=== PATIENT | female | born 1990 | race Two or more races ===

== ENCOUNTER 2019-03-12 15:58 | Inpatient (IN) | payer SELFPAY ==
[~2019-03-12] VITALS: Ht 162.6 cm; Wt 68.5 kg
[2019-03-12] MEDS ORDERED: TERBUTALINE 1 MG/ML VIAL. SQ PRN (16:45)
[2019-03-12] MEDS ORDERED: ONDANSETRON PF 4 MG/2 ML VIAL. IV PRN (16:45)
[2019-03-12] MEDS ORDERED: fentaNYL PF VIAL 100 MCG/2 ML VIAL IV PRN (16:45)
[2019-03-12] MEDS ORDERED: IBUPROFEN 400 MG TABLET. PO PRN (16:45)
[2019-03-12] MEDS ORDERED: OXYTOCIN 30 UNIT/500 ML PREMIX 500 ML IV PRN ×2 (16:45)
[2019-03-12] MEDS ORDERED: NALBUPHINE 10 MG/ML AMPUL. IV PRN ×2 (16:45)
[2019-03-12] MEDS ORDERED: 0.9 % SODIUM CHLORIDE 10 ML DISP.SYRIN. IV PRN (16:45)
[2019-03-12] MEDS ORDERED: BUTORPHANOL 2 MG/ML VIAL. IV PRN ×2 (16:45)
[2019-03-12] MEDS ORDERED: LIDOCAINE 1% PF 30 ML VIAL. INJ PRN (16:45)
[2019-03-12] MEDS ORDERED: PENICILLIN G K 5,000,000 UNIT in IV DEXTROSE 5% 100ML 100 ML IV ONE (17:00)
[2019-03-12 17:06] LABS: BASO % 1 % (0-3); EOS % 1 % (0-3); HEMOGLOBIN 12.3 g/dL (12.0-15.5); LYMPH # 1.5 x10^3/uL (1.0-4.8); LYMPH % 26 % (24-48); MEAN CORPUSCULAR HEMOGLOBIN 30 pg (25-35); MEAN CORPUSCULAR HGB CONC 34 g/dL (31-37); MEAN CORPUSCULAR VOLUME 87 fL (79-100); MONO # 0.4 x10^3/uL (0.0-1.1); MONO % 8 % (0-9); NEUT # 3.8 x10^3/uL (1.8-7.7); NEUT % 65 % (31-73); PLATELET COUNT 328 x10^3/uL (140-400); RED BLOOD COUNT 4.12 x10^6/uL (3.50-5.40); RED CELL DISTRIBUTION WIDTH 14.3 % (11.5-14.5); WHITE BLOOD COUNT 5.8 x10^3/uL (4.0-11.0)
[2019-03-12] MEDS: IV RINGERS,LACTATED 1000ML 1,000 ML IV SCH ×2 (17:06→21:18)
[2019-03-12 17:23] VITALS: BP 126/74
[2019-03-12] MEDS: PENICILLIN G K 2,500,000 UNIT in IV DEXTROSE 5% 50 ML IV SCH (21:15)
[2019-03-13] MEDS: PENICILLIN G K 2,500,000 UNIT in IV DEXTROSE 5% 50 ML IV SCH ×4 (00:40→13:50)
[2019-03-13] MEDS: IV RINGERS,LACTATED 1000ML 1,000 ML IV SCH ×2 (08:01→16:37)
--- NOTE | 2019-03-13 09:47 | PDOC1 ---
OB - History Hx of Present Care: Good Care Ultrasounds: Normal mid trimester US Obstetrical Complications: None Medical Complications: None Past Family/Social History * Past Medical, Surgical, Family and Obstetric Histories reviewed from chart. Rubella: Immune RPR/VDRL: Negative GBS Status: Positive HBsAG: Negative OB - Chief Complaint & HPI Date of Admission: Date of Admission: Mar 12, 2019 at 15:58 Chief Complaint/History : 2 Para: 0 EGA: 39 Reason for admission: active labor Admission Nurse Assessment Rev: Yes OB - Admission Exam Physical Exam Vitals: VS - Last 72 Hours, by Label Date Time Temp Pulse Resp B/P (MAP) Pulse Ox O2 Delivery O2 Flow Rate FiO2 03/12/19 17:23 98.1 71 18 126/74 (91) Room Air 98.1 HEENT: Normal Heart: Regular Rate Lungs: Clear Abdomen: Gravid, Non tender, Soft Extremities: Edema Reflexes: Normal Cervical Dilatation: 3cm Effacement: 75% Station: -3 Membranes: Intact Heart Rate: Normal Accelerations: Accelerations Present Decelerations: No decelerations Contractions on Admission: 6-10 Minutes Apart Intensity: Moderate Text A: 39 wks IUP Active labor GBS positive P: Admit labor management. Start Pen G prophylaxis. JOE YARBROUGH Jr, MD Mar 13, 2019 09:47
[2019-03-13] MEDS ORDERED: L&D EPIDURAL SYRINGE 50 ML ONE (10:17)
[2019-03-13] MEDS ORDERED: ROPIVacaine 0.2% PF 10 ML VIAL. ONE ×2 (10:17→10:30)
[2019-03-13] MEDS ORDERED: IV RINGERS,LACTATED 1000ML 1,000 ML IV SCH (10:22)
[2019-03-13] MEDS ORDERED: fentaNYL PF VIAL 100 MCG/2 ML VIAL IV PRN (10:30)
[2019-03-13] MEDS ORDERED: NALOXONE 0.4 MG/ML VIAL. IV PRN (10:30)
[2019-03-13] MEDS ORDERED: ROPIVacaine 0.2% IN 0.9%NACL PF 40 MG/20 ML DISP.SYRIN. EPID PRN (10:30)
[2019-03-13] MEDS ORDERED: ONDANSETRON PF 4 MG/2 ML VIAL. IV PRN (10:30)
[2019-03-13] MEDS ORDERED: ePHEDrine PF IN SALINE 50 MG/10 ML SYRINGE. IV PRN (10:30)
[2019-03-13] MEDS: L&D EPIDURAL SYRINGE 50 ML EPID PRN ×2 (10:43→13:39)
--- NOTE | 2019-03-13 14:43 | PDOC ---
VAGINAL DELIVERY DATE DATE: 03/13/19 TIME: 14:41 : 2 Para: 1 EGA: 39 VAGINAL DELIVERY: VTX VACCUM ASSISTED: No PLACENTA: Spontaneous 6/9 SEX: Female WEIGHT Weight [3450 gm ] Nuchal Cord: No Amniotic Fluid: Clear PAIN: Epidural EPISIOTOMY: No EXTENSION: No EBL 300 ml COMPLICATIONS none CONDITION pt. stable Signs of Intrauterine Infectio: None Shoulder Dystocia: No JOE YARBROUGH Jr, MD Mar 13, 2019 14:42
[2019-03-13] MEDS ORDERED: ZOLPIDEM 5 MG TABLET. PO PRN (14:45)
[2019-03-13] MEDS ORDERED: OXYTOCIN 30 UNIT/500 ML PREMIX 500 ML IV PRN (14:45)
[2019-03-13] MEDS ORDERED: HYDROCORTISONE 1% TOPICAL OINTMENT 30GM TUBE. TP PRN (14:45)
[2019-03-13] MEDS ORDERED: ACETAMINOPHEN 325 MG TABLET. PO PRN (14:45)
[2019-03-13] MEDS ORDERED: oxyCODONE/APAP 5/325 1 TAB TABLET PO PRN (14:45)
[2019-03-13] MEDS ORDERED: BENZOCAINE 20% TOPICAL AEROSOL SPRAY 57GM CAN. TP PRN (14:45)
[2019-03-13] MEDS ORDERED: MAGNESIUM HYDROXIDE 2,400 MG/30 ML ORAL.SUSP. PO PRN (14:45)
[2019-03-13] MEDS ORDERED: diphenhydrAMINE HCL 25 MG CAPSULE PO PRN (14:45)
[2019-03-13] MEDS ORDERED: PHENYLEPH/MINERAL OIL/PETROLAT RECTAL OINTMENT TUBE. RC PRN (14:45)
[2019-03-13] MEDS ORDERED: SIMETHICONE 80 MG TAB.CHEW PO PRN (14:45)
[2019-03-13] MEDS ORDERED: MAG HYDROX/ALUMINUM HYD/SIMETH 30 ML ORAL.SUSP PO PRN (14:45)
[2019-03-13] MEDS ORDERED: MMR per PROTOCOL. MC PRN (14:45)
[2019-03-13] MEDS ORDERED: 0.9 % SODIUM CHLORIDE 10 ML DISP.SYRIN. IV PRN (14:45)
[2019-03-13] MEDS: IBUPROFEN 400 MG TABLET. PO PRN (16:54)
[2019-03-13 17:45] VITALS: BP 118/64
[2019-03-13 19:10] VITALS: BP 120/72
[2019-03-13 23:35] VITALS: BP 117/77
[2019-03-14] MEDS: IV RINGERS,LACTATED 1000ML 1,000 ML IV SCH ×3 (00:37→16:37)
[2019-03-14 04:05] VITALS: BP 111/76
[2019-03-14] MEDS: IBUPROFEN 400 MG TABLET. PO PRN ×2 (04:55→19:12)
[2019-03-14] MEDS ORDERED: FERROUS SULFATE 325 MG TABLET. PO SCH (08:00)
--- NOTE | 2019-03-14 08:18 | PDOC ---
OB Progress Note Date of Service 03/14/19 Time of Evaluation 0815 Notes PT. feeling well. No complaints. Lab Laboratory Tests Test 03/12/19 16:52 White Blood Count 5.8 x10^3/uL (4.0-11.0) Red Blood Count 4.12 x10^6/uL (3.50-5.40) Hemoglobin 12.3 g/dL (12.0-15.5) Hematocrit 36.0 % (36.0-47.0) Mean Corpuscular Volume 87 fL (79-100) Mean Corpuscular Hemoglobin 30 pg (25-35) Mean Corpuscular Hemoglobin Concent 34 g/dL (31-37) Red Cell Distribution Width 14.3 % (11.5-14.5) Platelet Count 328 x10^3/uL (140-400) Neutrophils (%) (Auto) 65 % (31-73) Lymphocytes (%) (Auto) 26 % (24-48) Monocytes (%) (Auto) 8 % (0-9) Eosinophils (%) (Auto) 1 % (0-3) Basophils (%) (Auto) 1 % (0-3) Neutrophils # (Auto) 3.8 x10^3/uL (1.8-7.7) Lymphocytes # (Auto) 1.5 x10^3/uL (1.0-4.8) Monocytes # (Auto) 0.4 x10^3/uL (0.0-1.1) Eosinophils # (Auto) 0.0 x10^3/uL (0.0-0.7) Basophils # (Auto) 0.0 x10^3/uL (0.0-0.2) Treponema pallidum Antibody Nonreactive (Nonreactive) Medications Current Medications Sodium Chloride (Normal Saline Flush) 3 ml QSHIFT PRN IV AFTER MEDS AND BLOOD DRAWS; Start 03/12/19 at 16:45 Ringer's Solution 1,000 ml @ 125 mls/hr Q8H IV Last administered on 03/13/19at 08:01; Start 03/12/19 at 16:37 Nalbuphine HCl (Nubain) 5 mg PRN Q1HR PRN IV Mild to moderate labor pain; Start 03/12/19 at 16:45; Stop 03/13/19 at 17:46; Status DC Nalbuphine HCl (Nubain) 10 mg PRN Q1HR PRN IV Severe labor pain; Start 03/12/19 at 16:45; Stop 03/13/19 at 17:46; Status DC Butorphanol Tartrate (Stadol) 1 mg PRN Q1HR PRN IV mild to moderate labor pain; Start 03/12/19 at 16:45; Stop 03/13/19 at 17:47; Status DC Butorphanol Tartrate (Stadol) 2 mg PRN Q1HR PRN IV Severe labor pain; Start 03/12/19 at 16:45; Stop 03/13/19 at 17:47; Status DC Fentanyl Citrate (Fentanyl 2ml Vial) 100 mcg PRN Q30MIN PRN IV Severe pain; Start 03/12/19 at 16:45 Ondansetron HCl (Zofran) 4 mg PRN Q4HRS PRN IV NAUSEA/VOMITING; Start 03/12/19 at 16:45 Terbutaline Sulfate (Brethine) 0.25 mg 1X PRN PRN SQ SEE COMMENTS; Start 03/12/19 at 16:45; Stop 03/13/19 at 16:44; Status DC Lidocaine HCl (Xylocaine 1% Pf 30ml Vial) 30 ml 1X PRN PRN INJ SEE COMMENTS; Start 03/12/19 at 16:45; Stop 03/14/19 at 16:44 Oxytocin/Sodium Chloride 500 ml @ 0 mls/hr CONT PRN IV SEE I/O RECORD Last administered on 03/13/19at 08:49; Start 03/12/19 at 16:45; Stop 03/13/19 at 14:54; Status DC Oxytocin/Sodium Chloride 500 ml @ 0 mls/hr CONT PRN PRN IV Post delivery bleeding; Start 03/12/19 at 16:45; Stop 03/13/19 at 14:54; Status DC Ibuprofen (Motrin) 800 mg PRN Q6HRS PRN PO PAIN; Start 03/12/19 at 16:45; Stop 03/13/19 at 14:54; Status DC Penicillin G Potassium [id number] unit/Dextrose 100 ml @ 100 mls/hr 1X ONCE IV Last administered on 03/12/19at 17:06; Start 03/12/19 at 17:00; Stop 03/12/19 at 17:59; Status DC Penicillin G Potassium [id number] unit/Dextrose 50 ml @ 100 mls/hr Q4H IV Last administered on 03/13/19at 13:50; Start 03/12/19 at 21:00; Stop 03/13/19 at 17:47; Status DC Ropivacaine (Naropin 0.2%) 10 ml STK-MED ONCE .ROUTE ; Start 03/13/19 at 10:17; Stop 03/13/19 at 10:17; Status DC Ropivacaine/ Fentanyl/NS 50 ml @ As Directed STK-MED ONCE .ROUTE ; Start 03/13/19 at 10:17; Stop 03/13/19 at 10:17; Status DC Ringer's Solution 1,000 ml @ 1,000 mls/hr Q1H IV ; Start 03/13/19 at 10:22; Stop 03/13/19 at 11:21; Status DC Ephedrine Sulfate (ePHEDrine PF IN SALINE SYRINGE) 10 mg PRN Q2MIN PRN IV IF SBP<90; Start 03/13/19 at 10:30 Naloxone HCl (Narcan) 0.4 mg PRN Q1MIN PRN IV SEE COMMENTS; Start 03/13/19 at 10:30 Fentanyl Citrate (Fentanyl 2ml Vial) 100 mcg PRN 1X PRN IV FOR ANESTHESIA Last administered on 03/13/19at 10:44; Start 03/13/19 at 10:30; Stop 03/14/19 at 10:29 Ropivacaine/ Fentanyl/NS 50 ml @ 14 mls/hr CONT PRN EPID PAIN Last administered on 03/13/19at 13:39; Start 03/13/19 at 10:25 Ondansetron HCl (Zofran) 4 mg PRN Q6HRS PRN IV NAUSEA/VOMITING; Start 03/13/19 at 10:30; Status Cancel Ropivacaine/ Sodium Chloride (ROPIVacaine 0.2% - 0.9%NACL PF) 40 mg PRN 1X PRN EPID SEE COMMENTS; Start 03/13/19 at 10:30 Sodium Chloride (Normal Saline Flush) 10 ml QSHIFT PRN IV AFTER MEDS AND BLOOD DRAWS; Start 03/13/19 at 14:45 Oxytocin/Sodium Chloride 500 ml @ 62.5 mls/hr CONT PRN IV SEE I/O RECORD; Start 03/13/19 at 14:45; Stop 03/13/19 at 22:44; Status DC Acetaminophen (Tylenol) 650 mg PRN Q6HRS PRN PO MILD PAIN / TEMP; Start 03/13/19 at 14:45 Ibuprofen (Motrin) 800 mg PRN Q8HRS PRN PO INFLAMMATION/PAIN PREVENTION Last administered on 03/14/19at 04:55; Start 03/13/19 at 14:45 Docusate Sodium (Colace) 100 mg PRN BID PRN PO CONSTIPATION; Start 03/13/19 at 14:45 Magnesium Hydroxide (Milk Of Magnesia) 2,400 mg PRN DAILY PRN PO CONSTIPATION; Start 03/13/19 at 14:45 Al Hydroxide/Mg Hydroxide (Mylanta Plus Xs) 30 ml PRN Q4HRS PRN PO HEARTBURN / GAS; Start 03/13/19 at 14:45 Simethicone (Gas-X) 80 mg PRN AFTMEALHC PRN PO GAS / BLOATING; Start 03/13/19 at 14:45 Diphenhydramine HCl (Benadryl) 25 mg PRN Q6HRS PRN PO ITCHING; Start 03/13/19 at 14:45 Benzocaine (Americaine) 1 spray PRN QID PRN TP TOPICAL PAIN; Start 03/13/19 at 14:45 Phenyleph/Shark Oil/Min Oil/Petrol (Preparation H) 1 george PRN QID PRN RC RECTAL PAIN; Start 03/13/19 at 14:45 Hydrocortisone (Cortaid) 1 george PRN QID PRN TP PERINEAL PAIN; Start 03/13/19 at 14:45 Ferrous Sulfate (Feosol) 325 mg BIDWMEALS PO ; Start 03/14/19 at 08:00 Zolpidem Tartrate (Ambien) 5 mg PRN QHS PRN PO INSOMNIA, MAY REPEAT X1; Start 03/13/19 at 14:45 Info (Do NOT chart on this placeholder) 1 ea 1X PRN PRN MC SEE COMMENTS; Start 03/13/19 at 14:45 Info (Do NOT chart on this placeholder) 1 ea 1X PRN PRN MC SEE COMMENTS; Start 03/13/19 at 14:45 Oxycodone/ Acetaminophen (Percocet 5/325) 2 tab PRN Q4HRS PRN PO MODERATE PAIN, SEVERE PAIN; Start 03/13/19 at 14:45 Exam Abd: soft, non tender, fundus firm Assessment PPD#1 s/p Plan of Care: Continue current Tx, Mgmt JOE YARBROUGH Jr, MD Mar 14, 2019 08:18
[2019-03-14 08:26] LABS: BASO # 0.1 x10^3/uL (0.0-0.2); BASO % 1 % (0-3); EOS # 0.1 x10^3/uL (0.0-0.7); EOS % 1 % (0-3); HEMOGLOBIN 10.7 g/dL (12.0-15.5); LYMPH # 1.9 x10^3/uL (1.0-4.8); LYMPH % 21 % (24-48); MEAN CORPUSCULAR HEMOGLOBIN 30 pg (25-35); MEAN CORPUSCULAR HGB CONC 35 g/dL (31-37); MEAN CORPUSCULAR VOLUME 88 fL (79-100); MONO # 0.5 x10^3/uL (0.0-1.1); MONO % 6 % (0-9); NEUT # 6.4 x10^3/uL (1.8-7.7); NEUT % 72 % (31-73); PLATELET COUNT 268 x10^3/uL (140-400); RED BLOOD COUNT 3.53 x10^6/uL (3.50-5.40); RED CELL DISTRIBUTION WIDTH 13.7 % (11.5-14.5)
[2019-03-14 11:45] VITALS: BP 101/56
[2019-03-14 17:53] VITALS: BP 97/60
[2019-03-14] MEDS: DOCUSATE SODIUM 100 MG CAPSULE. PO PRN (21:09)
[2019-03-14 21:15] VITALS: BP 111/68
[2019-03-15 05:42] VITALS: BP 114/80
[2019-03-15] MEDS: DOCUSATE SODIUM 100 MG CAPSULE. PO PRN (09:55)
[2019-03-15] MEDS: IBUPROFEN 400 MG TABLET. PO PRN (09:55)
[2019-03-15 10:00] VITALS: BP 106/76
--- NOTE | 2019-03-15 10:20 | PDOC3 ---
OB DISCHARGE SUMMARY DATE OF ADMISSION: 03/12/19 DATE OF DISCHARGE: 03/15/19 REASON FOR ADMISSION: Onset of labor INTRAPARTUM PROCEDURES: Spontanous Vag Deliv DISCHARGE DIAGNOSIS: Term Delivered DISCHARGE INFORMATION: Activity (ad margaret), Diet (regular), Instructions (pelvic rest x 6 wks) HOSPITAL COURSE Term gestation delivered vaginally without complications. JOE YARBROUGH Jr, MD Mar 15, 2019 10:20
[2019-03-15] MEDS ORDERED: IBUP-1027 PO (10:21)
--- NOTE | 2019-03-15 10:21 | DISCH ---
DISCHARGE INSTRUCTIONS Condition on Discharge Condition on Discharge: Stable Activity After Discharge Activity Instructions for Disc: Activity as tolerated Lifting Instructions after Dis: No heavy lifting Driving Instructions after Dis: Do not drive today Diet after Discharge Diet after Discharge: Regular Contacting the DRAlisia after DC Call your doctor for: Concerns you may have Follow-Up Follow up with: Jb in 6 wks JOE YARBROUGH Jr, MD Mar 15, 2019 10:21
[2019-03-15 11:45] VITALS: BP 107/76
--- NOTE | 2019-03-15 12:05 | NUR ---
Discharge and follow up instructions given to patient. Her S/O translated them and they were also written in [place]. Pt ambulated out of the hospital with staff and all her belongings. SH edenied any questions or concerns at this time.
== END 2019-03-15 12:05 | disposition home or self-care (01) | DRG 807 ==
LOC: 3 SO LND 15:58 → 3 NORTH 03-13 17:40
PROVIDERS: ADMIT Obstetrics & Gynecology; ATTEND Obstetrics & Gynecology
PROC: 10E0XZZ Delivery of Products of Conception, External Approach (ICD-10-PCS; principal; 2019-03-12)
PROC: 3E0R3BZ Introduction of Anesthetic Agent into Spinal Canal, Percutaneous Approach (ICD-10-PCS; 2019-03-12)
PROC: 00HU33Z Insertion of Infusion Device into Spinal Canal, Percutaneous Approach (ICD-10-PCS; 2019-03-12)
DX: O99.824 Streptococcus B carrier state complicating childbirth (principal); Z37.0 Single live birth; Z3A.39 39 weeks gestation of pregnancy
CPT/HCPCS: 36415; 85025; 86592; 86850; 86900; 86901; J2540; J2590; J2795; J3010; J7120; G0378